=== PATIENT | female | born 1965 | race Caucasian/White ===

== ENCOUNTER 2024-03-21 16:37 | Inpatient (IN) | payer OTHER, SELFPAY ==
[2024-03-21 12:32] VITALS: BP 112/70
[2024-03-21 13:25] VITALS: BP 91/62
[2024-03-21 14:00] VITALS: BP 100/60
--- NOTE | 2024-03-21 15:15 | ED.GENMED ---
History of Present Illness
General
Chief Complaint: Musculo-Skeletal Complaint
Source: patient
Exam Limitations: dementia
Time Seen by Provider: 03/21/24 13:23
Nursing documentation reviewed up to this point in time: agreed with
Travel History
Have you had any contact with someone who has COVID-19?: No
Do you have any symptoms of coronavirus? Fever > 100 degrees, chills, cough, shortness of breath, sore throat, loss of taste or smell, muscle aches, or headache?: No
History of Present Illness
History of Present Illness:
58-year-old female past medical history of Alzheimer's presenting to the emergency department today with concerns of a ground-level fall in the shower with her ent surgeon the time who was able to protect her head she did not hit her head but did
twist her right hip and has not been able to weight-bear since. Mainly complaining of right-sided hip pain.
Past History
Past History
ED Past Medical History: Other (Early onset Alzheimer's)
ED Past Surgical History: None
Social History
Tobacco: Non-smoker
Alcohol: None
Drug: None
Personal:
Living: with family
Family History
Family History: Negative Diabetes, Hypertension, Early CAD, Asthma or Cancer
Review of Systems
Review of Systems
Allergies reviewed?: Yes
All Other Systems: ROS reviewed and negative except as documented in HPI and ROS
Phy Exam
Physical Exam
Physical Exam:
GENERAL: Alert , in no apparent distress
EYE: pupils equal and reactive
NECK: Supple, no significant adenopathy.
ENT: o/p clr, mmm.
CARDIAC: Regular rate and rhythm .
LUNGS: Clear breath sounds bilaterally, no acute respiratory distress, no wheezes/rales/rhonchi
ABDOMEN: Soft, without focal tenderness, no r/g, no cvat
NEUROLOGICAL: Alert and oriented, no focal neuro deficits
SKIN: Warm and dry, skin intact.
MUSCULOSKELETAL: Significant discomfort with any movement of the right hip tenderness palpation to the right hip no redness or warmth normal distal pulses, well perfused.
PSYCH: Normal and appropriate interaction.
Course
Orders/Labs/Results
Orders:
Orders
03/21/24 12:39
CR Hips GERRY w/wo Pel 3-4 Vw Urgent
Comment:
Reason For Exam: fall, pain
Include a pelvis x-ray?: Yes
CR Knee- Right 4 Or More View* Urgent
Comment:
Reason For Exam: fall, pain
03/21/24 14:57
CT Lower Ext W/o Iv Cont Rt Urgent
Comment:
Reason For Exam: eval of known hip fx
03/21/24 15:24
BMP [Basic Metabolic Panel] Urgent
CBC/With Diff [Complete Blood Count/With Diff] Urgent
03/21/24 15:32
Weight Bearing Status As Directed
Weight bearing to: Right lower extremity
Type: Non Wt. bearing
03/21/24 15:34
Type+Screen Routine
03/21/24 15:44
Consult Orthopedic [ORTHOPEDIC CONSULT] Urgent
Consulting Provider: Minesh Diaz
Was physician already notified: Yes
03/22/24 Breakfast
NPO
Allow oral meds: Yes
Allow clear liquids: No
03/22/24 07:00
Povidone Iodine 10% Solution [Povidone Iodine 10%] 114 ml 0.9% Sod Chloride 3000 ml Irr [Nss Irrigation Bag] 3,000 ml IRRIG OR
Tranexamic Acid 3,000 mg 0.9% Sodium Chloride 250 ml [Nss] 250 ml IRRIG OR
03/22/24 15:32
CeFAZolin 2 GRAM [Ancef] 2 grams in 10 ml IV PRE PROCEDURE
Vital Signs
Initial and Last Documented VS:
Initial Vital Signs
Temp Pulse Resp BP Pulse Ox
97.4 F 56 18 112/70 100
03/21/24 12:32 03/21/24 12:32 03/21/24 12:32 03/21/24 12:32 03/21/24 12:32
Last Documented Vital Signs
Temp Pulse Resp BP Pulse Ox
97.4 F 60 14 100/60 100
03/21/24 12:32 03/21/24 14:30 03/21/24 14:30 03/21/24 14:00 03/21/24 13:45
MDM/Problems Addressed
MDM/Problems Addressed:
58-year-old female presenting to the emergency department after ground-level fall hitting her right hip. X-ray showing hip fracture Case discussed with orthopedics that would like patient admitted CT scan ordered for further assessment will likely
take to the OR tomorrow. Stable throughout ER stay. No signs of additional injury otherwise.
*Critical Care Note
Total Time (30-74mins, 75-104mins- exclusive of procedures): Not Applicable
ED Attending Note
-
Portions of this chart may have been created with voice recognition software.� Occasional wrong word or��sound alike� substitutions may have occurred due to the inherent limitations of voice recognition software.
Discharge Plan
Departure
Patient Disposition: Admit
Date of Disposition: 03/21/24
Time of Disposition: 15:48
Admit to: Med/Surg
Admit to doctor: Mark
Presentation/result/management discussed w/ accepting MD/DO: Hospitalist
Patient with high blood pressure during this ER visit?: No
Condition: Good
Covid-19: Not Applicable
Discharge Problem:
Fracture of right hip
Prescriptions:
No Action
No Meds [No Current Medications]
0
famotidine 40 MG tablet
40 mg PO HS Qty: 14 0RF
Referrals:
Jason Mccullough MD [Family Provider] -
Interventions
Interventions:
*Risk Screen - Suicide Last Done: 03/21/24 12:32
*General Assessment Last Done: 03/21/24 12:32
*Neglect/Abuse Screening Last Done: 03/21/24 12:32
ED- Fall Risk Assessment Last Done: 03/21/24 12:32
*ED COVID-19 Vaccine History Last Done: 03/21/24 12:32
ED-Musculoskeletal Assessment Last Done: 03/21/24 12:32
Discharge Date and Time
Print Language: GERMAN
--- NOTE | 2024-03-21 15:53 | CON.ORTHO ---
Consultation
-
Date/Time Consultation Requested: 03/21/2024 @ 15:44
Date/Time Consultation Performed: 03/21/2024 @ 15:50
Requesting Provider: Tahco Asher PA-C
Performing Provider: Maurice Conde PA-C for Dr. Minesh Diaz
Reason for Consultation: Right Hip Fracture
Consultation - Orthopedics
History
HPI: The patient is a 58-year-old female with a past medical history significant for early onset Alzheimer's who presents to [facility] Emergency Department with right hip pain. Due to Alzheimer's, much of history was obtained through
patient's (Rod HAINES) and Marie (aviation maintenance technician). It is reported that patient sustained a mechanical fall in the shower earlier today. Denies any head trauma/LOC. Patient has not been able to weight-bear since. Patient's aviation maintenance technician called
EMS who brought her to the ER for evaluation. X-rays were obtained revealing interruption of the trabecular pattern of the right femoral neck, suggestive of a minimally displaced fracture. Currently, she is resting in bed. She has pain localized
to the right hip with any movement. She does not take any blood thinners. Denies any further injuries. Denies any prior cardiac history. At baseline, patient is fully ambulatory without assistance. She does require assistance with ADLs.
Orthopedic surgery was consulted regarding management of her right hip fracture.
PAST MEDICAL HISTORY: Early onset Alzheimer's.
PAST SURGICAL HISTORY: None.
SOCIAL HISTORY: Denies tobacco use, alcohol use, or illicit drug use. Patient lives in a two-story home. Prior to her fall, she was fully ambulatory without assistance. She does require assistance with ADLs due to Alzheimer's.
FAMILY HISTORY: Non-contributory.
REVIEW OF SYSTEMS: 12-point review of systems obtained and negative except those mentioned in the HPI.
Allergies / Home Medications
Allergy/AdvReac Type Severity Reaction Status Date / Time
No Known Allergies Allergy Verified 03/21/24 12:38
�Medication �Instructions �Recorded
No Meds [No Current Medications] 0 02/11/11
famotidine 40 mg tablet 40 mg PO HS #14 tabs 02/11/11
Vital Signs / Lab Results
Temp Pulse Resp BP Pulse Ox
97.4 F 60 14 100/60 100
03/21/24 12:32 03/21/24 14:30 03/21/24 14:30 03/21/24 14:00 03/21/24 13:45
RADIOGRAPHIC FINDINGS:
CR Hips GERRY w/wo Pel 3-4 Vw was obtained at [facility] on 03/21/2024 and was made available for my review. Findings and Impression: There is interruption of the trabecular pattern of the right femoral neck, suggestive of minimally displaced
fracture. No additional fractures are appreciated. Radiographs obtained reviewed in comparison to prior right hip radiographs from 11/12/2022.
CR Knee - Right 4 or More View was also obtained at [facility] on 03/21/2024 and was made available for my review. Findings: No displaced fracture or dislocation is appreciated. No significant suprapatellar joint effusion is appreciated.
There is significant osteophyte formation and joint space narrowing. No significant osteoblastic or osteolytic lesions are seen. No significant periosteal reaction. Impression: No acute osseous abnormality appreciated.
PHYSICAL EXAM:
General: Well-developed, well-nourished female no acute distress.
HEENT: NCAT, sclera anicteric, normal conversational hearing.
Heart: No JVD. No lower extremity edema.
Lungs: Normal work of breathing on room air.
MSK: Focused examination of the right lower extremity reveals leg slightly shortened/slightly externally rotated. (+) Log roll. (+) Tenderness to palpation of right hip. No reproducible tenderness to palpation about the right knee. Gentle range of
motion of the right knee with flexion and extension without pain. Range of motion of the right hip deferred secondary to fracture. Able to plantarflex and dorsiflex right ankle. Able to wiggle all toes. Calf is soft and nontender to palpation.
NVI distally.
Assessment / Plan
ASSESSMENT: 58-year-old female with a past medical history significant for early onset dementia with a right femoral neck fracture.
PLAN: Unfortunately, radiographs obtained today revealed findings consistent with a right femoral neck fracture. Treatment options were discussed with the patient's POA (Rod: [phone]) and aviation maintenance technician (Marie). After thorough discussion,
shared decision was to proceed with operative fixation with ORIF vs. Hemiarthroplasty. We will obtain CT scan prior for further evaluation. The risks, benefits, potential complications, and expected postoperative course were reviewed. Surgical and
blood consents were obtained. Consent was left with OR front desk host. We will plan for OR tomorrow, 03/22/2024, under the direction of Dr. Diaz. Patient to remain NPO pMN. She is to remain nonweightbearing to the right leg until postop.
Pre-operative Ancef, iodine irrigation, and TXA irrigation on-call to the OR. Continue with pain management as needed. All questions were answered. Orthopedic surgery will continue to follow along.
[2024-03-21 15:56] LABS: % Basophils 0.6 % (0-2); % Eosinophils 1.8 % (0-6); % Immature Granulocytes 0.5 % (0-0.5); % Lymphocytes 10.6 % (20.5-51.1); % Monocytes 4.9 % (1.7-9.3); % Neutrophils 81.6 % (42.2-75.2); Absolute Basophils 0.1 10^3/uL (0-0.2); Absolute Eosinophils 0.2 10^3/uL (0-0.7); Absolute Immature Granulocytes 0.1 10^3/uL (0-0.05); Absolute Lymphocytes 1.2 10^3/uL (1.2-3.4); Absolute Monocytes 0.5 10^3/uL (0.1-0.6); Absolute Neutrophils 8.9 10^3/uL (1.4-6.5); Hematocrit 37.5 % (37.0-47.0); Hemoglobin 13.1 g/dL (12.0-16.0); Mean Corp Hgb Conc. 34.9 g/dL (33.0-37.0); Mean Corpuscular Hgb 31.8 pg (27.0-31.0); Mean Platelet Volume 13.6 fL (7.4-10.4); Nucleated Red Blood Cells % 0 %; Platelet Count 221 10^3/uL (130-400); Red Blood Cell Count 4.12 10^6/uL (4.20-5.40); Red Cell Dist. Width 12.6 % (11.5-14.5); White Blood Cell Count 10.9 10^3/uL (4.8-10.8)
[2024-03-21 15:59] LABS: Blood Urea Nitrogen 15 mg/dl (7-17); Calcium 9.1 mg/dl (8.4-10.2); Carbon Dioxide 30 mmol/L (22-30); Chloride 105 mmol/L (98-107); Glucose 85 mg/dl (70-99); Potassium 4.6 mmol/L (3.5-5.1); Sodium 138 mmol/L (135-145); eGFR > 60.00
--- NOTE | 2024-03-21 16:27 | HPS.HSE ---
Family Physician
-
Family Physician: Jason Mccullough
Chief Complaint
-
fall
History of Present Illness
58-year-old female with history of early onset Alzheimer disease came to the hospital after a fall with right hip fracture. Patient is poor historian and majority of the history was taken from shift manager and at bedside. Patient had a
ground-level fall in the shower and twisted her right hip. Currently denies any pain. Seen by orthopedics in the ED and plan for or tomorrow.
Medical History
Past Medical History
Past Medical History: Reports Other (Early onset Alzheimer)
Past Surgical History: Reports None
Social History
Unable to obtain full social history at this time due to: Dementia
Alcohol: None
Drug: None
Family History
Family History: Not pertinent
Allergies / Home Medications
Allergies reflects when Allergies were last updated in [facility].
Home Medications with original date entered in [facility]
Allergy/Medication List:
Allergies
Allergy/AdvReac Type Severity Reaction Status Date / Time
No Known Allergies Allergy Verified 03/21/24 12:38
Home Medications
quetiapine 25 mg tablet 25 mg PO DAILY 03/21/24
Review of Systems
-
Unable to obtain full review of systems at this time due to: Dementia
Physical Exam
Vital Signs
Vital Signs
Temp Pulse Resp BP Pulse Ox
97.4 F 60 14 100/60 100
03/21/24 12:32 03/21/24 14:30 03/21/24 14:30 03/21/24 14:00 03/21/24 13:45
Physical Exam
General: Well Nourished and No Apparent Distress
HEENT: Anicteric and Moist mucous membranes
Respiratory: Clear; No Wheezes
Cardiac: S1/S2 and Regular Rhythm
Breast: Deferred by me
GI: Soft and Non Tender
Rectal: Deferred by Provider
Genito-urinary: No Ocasio
Musculoskeletal: No Edema
Neuro: Awake and Alert
Psych: Anxious and Apparent Dementia
Laboratory Results
-
03/21/24 15:24
03/21/24 15:24
Data Reviewed
-
Diagnostic Radiology: Report Reviewed by me and Discussed with Family
Lab Data: Labs Reviewed by me and Discussed with Family
Impression/Plan
-
Acute right hip fracture secondary to trauma
X-ray noted
CT scan pending
Orthopedics consulted, plan for or tomorrow
N.p.o. past midnight
Postop PT/OT; DVT prophylaxis per Ortho
pain control
Patient no EKG done on admission, EKG ordered. Risk stratify pending EKG. no hx of other cardiac problems per family so likely appropriate risk for this surgery
Hx of early onset Alzheimer dementia
cw seroquel
monitor for any behavioral changes; or shift manager will be staying with patient this hospitalization
History of nondisplaced nasal bone fracture
DVTppx
SCD's for now; Post OP per ortho
Full code
Discussed with shift manager, at bedside
--- NOTE | 2024-03-21 18:29 | PTCARENOTE ---
Patient received from ED in stretcher, pulled over to bed; Patient not oriented to self, place or time; Agitated, uncooperative; (Greg) at bedside; Patient does not respond when asked about pain; Bed alarm in place; Static air overlay in
place; Bruise on left buttock; Bed in lowest position, wheels locked; Call bennett within reach; Assessment ongoing
[2024-03-21 18:47] VITALS: BP 90/48
[2024-03-21] MEDS: MORPHINE SULFATE 1 MG IV (20:00)
[2024-03-21 23:15] VITALS: BP 114/61
[2024-03-22] VITALS (11 sets, daily range): BP systolic 102–142; BP diastolic 60–93
--- NOTE | 2024-03-22 01:21 | PTCARENOTE ---
58-year-old female with history of early onset Alzheimer disease (AOx0) arrived in ED after a fall with right hip fracture. Patient is a poor historian and majority of the admission was taken from daughter Ame & sister Joan with the help of
Greg via text to daughter. Patient had a ground-level fall in the shower and twisted her right hip. Pt scored 7 on CPOT screening, administered 1 mg IV morphine for pain score of 7 at 20:00. Family remains at beside. Bed alarm on, bed in low
position, call light in reach. Pain control, hygiene, pt safety and comfort plan for overnight. Pt to have a R Ba Hip with Dr. Edge tomorrow.
--- NOTE | 2024-03-22 07:21 | W.PN.UPDATE ---
Addendum entered and electronically signed by Tio Clements MD 03/22/24 16:46:
Patient seen and examined in the presence of her . Right hip hemiarthroplasty discussed. Risks, benefits, complications and postop expectations discussed. The procedure was discussed in detail. All questions were answered. Informed
consent obtained.
Original Note:
Update Note
Progress Note Update
Patient's at bedside this morning. She is going to require right hip hemiarthroplasty later today. She will remain n.p.o. Surgical/blood consents signed by . Surgical location marked. Ancef network control technician to to operating room.
Antibiotic irrigation/TXA to operating room as well.
[2024-03-22] MEDS: SEROQUEL 25 MG PO (08:20)
--- NOTE | 2024-03-22 08:22 | W.PN.HOSP.TC ---
Addendum entered and electronically signed by Master Yarbrough MD 03/22/24 15:09:
Cachexia
Original Note:
Today's Communication/Plan
-
Patient is considered low risk for scheduled hemiarthroplasty to right hip fracture
Spoke to at bedside
Resume Seroquel. For advanced Alzheimer's and behavioral changes
Monitor hemodynamics.
Assessment / Plan
Assessment / Plan
58-year-old female with history of early onset Alzheimer disease came to the hospital after a fall with right hip fracture. Patient is poor historian and majority of the history was taken from advanced analytics associate and at bedside. Patient had a
ground-level fall in the shower and twisted her right hip. Currently denies any pain. Seen by orthopedics in the ED and plan for or tomorrow.
Acute right hip fracture secondary to trauma
X-ray noted
CT scan pending
Orthopedics consulted, plan for or tomorrow
N.p.o. past midnight
Postop PT/OT; DVT prophylaxis per Ortho
pain control
EKG reviewed no acute ischemic or injury changes and stable sinus rhythm/ no hx of other cardiac problems per family so likely appropriate risk for this surgery
Hx of early onset Alzheimer dementia
cw seroquel
monitor for any behavioral changes; or advanced analytics associate will be staying with patient this hospitalization
History of nondisplaced nasal bone fracture
DVTppx
SCD's for now; Post OP per ortho
Full code
Discussed with advanced analytics associate, at bedside
Anticipated Discharge: Within 24 hours
Subjective/Interval History
-
Date of Service: March 22, 2024
Patient seen in presence of poor historian due to underlying cognitive dysfunction and advanced Alzheimer's in no acute distress
Objective Data
-
Labs:
Laboratory Results
03/22/24 03/22/24
07:51 07:52
WBC Pending
Hgb Pending
Hct Pending
Plt Count Pending
PT Pending
INR Pending
APTT Pending
Sodium Pending
Potassium Pending
Chloride Pending
Carbon Dioxide Pending
BUN Pending
Creatinine Pending
Glucose Pending
Calcium Pending
Total Bilirubin Pending
AST Pending
ALT Pending
Alkaline Phosphatase Pending
Vital Signs:
Vital Signs
Temp Pulse Resp BP Pulse Ox
97.6 F 80 18 102/85 94
03/22/24 07:25 03/22/24 07:25 03/22/24 07:25 03/22/24 07:25 03/22/24 07:25
Review of Systems
-
Unable to obtain full review of systems at this time due to: Dementia
History Source: Patient
Physical Exam
-
General: Well Nourished and No Apparent Distress
HEENT: Normocephalic
Respiratory: Clear to Auscultation
Cardiac: Regular Rhythm
GI: Soft
Musculoskeletal: No Clubbing and Edema, Left Lower Extrem (Shortened)
Skin: IV Access / Catheter Site
Data Reviewed
-
Total Time Spent with Patient (in minutes): 45
CT Scan: Report Reviewed by me (Exhibited subcapital fracture)
Labs: Labs Reviewed by me (Today's labs pending/baseline hemoglobin 13 yesterday)
[2024-03-22 08:33] LABS: INR 1.12; PT 14.2 Sec (11.4-14.6)
[2024-03-22 08:34] LABS: APTT 27.3 Sec (23.4-35.0)
[2024-03-22 08:35] LABS: % Basophils 0.6 % (0-2); % Immature Granulocytes 0.3 % (0-0.5); % Lymphocytes 9.5 % (20.5-51.1); % Monocytes 7.5 % (1.7-9.3); % Neutrophils 81.1 % (42.2-75.2); Absolute Basophils 0.1 10^3/uL (0-0.2); Absolute Eosinophils 0.1 10^3/uL (0-0.7); Absolute Lymphocytes 0.9 10^3/uL (1.2-3.4); Absolute Monocytes 0.7 10^3/uL (0.1-0.6); Absolute Neutrophils 7.9 10^3/uL (1.4-6.5); Hematocrit 38.7 % (37.0-47.0); Hemoglobin 13.1 g/dL (12.0-16.0); Mean Corp Hgb Conc. 33.9 g/dL (33.0-37.0); Mean Corpuscular Hgb 31.6 pg (27.0-31.0); Mean Corpuscular Volume 93.3 fL (81.0-99.0); Mean Platelet Volume 13.5 fL (7.4-10.4); Nucleated Red Blood Cells % 0 %; Platelet Count 217 10^3/uL (130-400); Red Blood Cell Count 4.15 10^6/uL (4.20-5.40); Red Cell Dist. Width 12.5 % (11.5-14.5); White Blood Cell Count 9.8 10^3/uL (4.8-10.8)
[2024-03-22 08:53] LABS: ALT (SGPT) 21 U/L (0-35); AST (SGOT) 23 U/L (14-36); Albumin 3.6 g/dl (3.5-5.0); Alkaline Phosphatase 83 U/L (38-126); Blood Urea Nitrogen 11 mg/dl (7-17); Calcium 8.8 mg/dl (8.4-10.2); Carbon Dioxide 29 mmol/L (22-30); Chloride 105 mmol/L (98-107); Glucose 91 mg/dl (70-99); Potassium 3.8 mmol/L (3.5-5.1); Sodium 139 mmol/L (135-145); Total Protein 6.2 g/dl (6.3-8.2); eGFR > 60.00
[2024-03-22] MEDS: MORPHINE SULFATE 1 MG IV (11:19)
--- NOTE | 2024-03-22 12:08 | PTCARENOTE ---
Pt noted with bruising to inner thighs and labial area extending posteriorly to buttocks discussed with Dr Diaz felt to most likely be related to the fracture. Care remains ongoing.
--- NOTE | 2024-03-22 13:57 | PN.CDI ---
CDI
- -
CDI:
Physician Documentation Request
Admit Date: 03/21/24 16:37
Dear Doctor Linnea,
Patient admitted with right hip fracture.
Please review the following and provide your response in the progress notes.
Clinical Indicators:
Height: 5' 4'
Weight: 87 lb 11 oz
BMI: 15.1
Please provide an associated diagnosis related to the abnormal BMI, such as:
Underweight
Cachectic
Anorexia
BMI is not significant
Other
BMI < or = to 19
Underweight
Weight Loss
Cachectic
Anorexia
Use of terms such as suspected, likely, concern for, or probable (associated with a specific diagnosis that is being evaluated, monitored, or treated as if it exists) are acceptable and can be coded in the inpatient setting, when documented at the
time of discharge.
Thank you,
Leonela BELLA,RN,CCDS
CDI Specialist
Available via tiger text
Please use your independent medical judgment in providing your response.
[2024-03-22] MEDS: DILAUDID 0.25 MG IV (16:46)
[2024-03-22] MEDS: ASPIRIN 325 MG PO (17:53)
--- NOTE | 2024-03-22 18:00 | PTCARENOTE ---
Pt returned from PACU in bed. R hip aquacel with scant pinpoint drainage. Pt confused, unable to follow commands. + DP b/l. Bed locked and in the lowest position, safety maintained. Call bennett in reach, family at bedside.
[2024-03-22] MEDS: DILAUDID 0.5 MG IV (19:33)
[2024-03-22] MEDS: COLACE PO (21:19)
[2024-03-22] MEDS: SENOKOT PO (21:19)
[2024-03-22] MEDS: ANCEF 5 IV (21:28)
[2024-03-22] MEDS: BACTROBAN 2% OINTMENT 1 APPLIC NASAL (21:29)
[2024-03-23] VITALS (7 sets, daily range): BP systolic 99–123; BP diastolic 55–69; PULSE 69; O2SAT 98; BMI 15.1
[2024-03-23] MEDS: ANCEF 5 IV (04:08)
[2024-03-23 05:34] LABS: Hematocrit 33.5 % (37.0-47.0); Hemoglobin 11.6 g/dL (12.0-16.0); Mean Corp Hgb Conc. 34.6 g/dL (33.0-37.0); Mean Corpuscular Hgb 31.5 pg (27.0-31.0); Mean Platelet Volume 13.4 fL (7.4-10.4); Platelet Count 217 10^3/uL (130-400); Red Blood Cell Count 3.68 10^6/uL (4.20-5.40); Red Cell Dist. Width 12.7 % (11.5-14.5); White Blood Cell Count 11.4 10^3/uL (4.8-10.8)
[2024-03-23 05:58] LABS: Blood Urea Nitrogen 12 mg/dl (7-17); Calcium 8.8 mg/dl (8.4-10.2); Carbon Dioxide 24 mmol/L (22-30); Chloride 104 mmol/L (98-107); Estimated Creatinine Clearance 65 ml/min; Glucose 101 mg/dl (70-99); Potassium 4.7 mmol/L (3.5-5.1); Sodium 136 mmol/L (135-145); eGFR > 60.00
--- NOTE | 2024-03-23 07:30 | W.PN.HOSP.TC ---
Today's Communication/Plan
-
Will await rehab assessment by PT/OT today
Continue to monitor CBC and chemistries
Hemodynamically stable
Should be okay for discharge to a rehab facility once disposition outlined
Assessment / Plan
Assessment / Plan
58-year-old female with history of early onset Alzheimer disease came to the hospital after a fall with right hip fracture. Patient is poor historian and majority of the history was taken from ski lift attendant and at bedside. Patient had a
ground-level fall in the shower and twisted her right hip. Currently denies any pain. Seen by orthopedics in the ED and plan for or tomorrow.
Acute right hip fracture secondary to trauma
X-ray noted
CT scan pending
Orthopedics consulted, plan for or tomorrow
N.p.o. past midnight
Postop PT/OT; DVT prophylaxis per Ortho
pain control
EKG reviewed no acute ischemic or injury changes and stable sinus rhythm/ no hx of other cardiac problems per family so likely appropriate risk for this surgery
Hx of early onset Alzheimer dementia
cw seroquel
monitor for any behavioral changes; or ski lift attendant will be staying with patient this hospitalization
Recent weight loss
- has very good appetite
-May need to assess with outpatient workup unclear what colonoscopy status and prior history is
History of nondisplaced nasal bone fracture
DVTppx with full dose aspirin as per orthopedic
SCD's for now; Post OP per ortho
Full code
Discussed with ski lift attendant, at bedside/son at bedside today
Anticipated Discharge: 24 - 48 hours
Subjective/Interval History
-
Date of Service: March 23, 2024
For poor historian due to cognitive issues and underlying dementia family at bedside
Objective Data
-
Labs:
Laboratory Results
03/23/24
04:57
WBC 11.4 H
Hgb 11.6 L
Hct 33.5 L
Plt Count 217
Sodium 136
Potassium 4.7
Chloride 104
Carbon Dioxide 24
BUN 12
Creatinine 0.5 L
Glucose 101 H
Calcium 8.8
Vital Signs:
Vital Signs
Temp Pulse Resp BP Pulse Ox
97.7 F 77 16 99/69 95
03/23/24 03:32 03/23/24 07:20 03/23/24 07:20 03/23/24 07:20 03/23/24 07:20
I&O
03/22/24 03/23/24 03/24/24
06:59 06:59 06:59
Intake Total 400 / 400
Balance 400 / 400
Review of Systems
-
Unable to obtain full review of systems at this time due to: Dementia
History Source: Patient and Family
Constitutional: Denies Fever
Respiratory: Reports No Symptoms
Cardiac: Reports No Symptoms
Abdomen/GI: Reports No Symptoms
Psych: Reports Sad
Physical Exam
-
General: Appears Chronically Ill and Cachectic
HEENT: Normocephalic
Respiratory: Clear to Auscultation
Cardiac: Regular Rhythm
GI: Soft
Musculoskeletal: Edema, Right Lower Extrem (Some swelling and edema around surgical site with Aquacel with minimal if any strikethrough)
Neuro: Awake
Data Reviewed
-
Total Time Spent with Patient (in minutes): 45
Labs: Labs Reviewed by me (Hemoglobin stable at 11.6/white count 11.4/)
--- NOTE | 2024-03-23 07:54 | W.PN.ORTHO ---
Today's Communication / Plan
-
58F POD1 R hip hemiarthoplasty with Dr. Clements
-anterior hip precautions 6 weeks as best applicable
-DVT ppx of ASA 325mg daily for 4 weeks unless recommended otherwise per primary
-WBAT to RLE
-postop abx as ordered
-PT/OT/DC planning
-outpatient f/u 2 weeks for wound check/suture/staple removal
Assessment
.
Distal Motor Intact: Yes
Dressing:
Clean, dry and intact.
Plan
.
Surgery / Date: 22 Mar 2024 R hip hemiarthoplasty w/ Dr. Clements
DVT Prophylaxis: Aspirin
Activity:
Out of bed.
PT/OT
Subjective
.
.:
Patient resting comfortably. Her son is in the room
Vital Signs and Labs
.
Vital Signs and Labs:
Lab Results
03/23/24 04:57
03/23/24 04:57
Temp Pulse Resp BP Pulse Ox
97.7 F 77 16 99/69 95
03/23/24 03:32 03/23/24 07:20 03/23/24 07:20 03/23/24 07:20 03/23/24 07:20
PT 14.2 Sec (11.4-14.6) 03/22/24 07:51
INR 1.12 03/22/24 07:51
Non-invasive Hgb result: 10.6
--- NOTE | 2024-03-23 07:55 | CM ---
Addendum entered by Sobeida Scott 03/23/24 18:26:
spoke with patient's is is still not sure if he wants to take patient home with additional aides or snf rehab. no referrla sent.
Original Note:
met with patient and daughter at bedside. patient with early onset alzheimers and not able to answer any of my questions.patient lives with her in house with 2 steps to enter,her bed and bath is on second level.she ambulates I and needs A
with bathing/grooming.patient has a walk in shower.her pcp is dr grossman and she uses [facility] in [place].patient has used [facility] in the past,family has hired a friend to assist patient from 8am until 6pm 5 days per week.
cares for patient on the weekend.
patient with early onset alzheimers disease is adm after a fall in the shower resulting with a fx right hip.she is for or for a hemiarthroplasty.await pt/ot evals.daughter mentions she and her father have been thinking about home vs short term
rehab.plan home with caretakers vs short term rehab.
[2024-03-23] MEDS: BACTROBAN 2% OINTMENT 1 APPLIC NASAL ×2 (09:52→22:00)
[2024-03-23] MEDS: ASPIRIN 325 MG PO (09:53)
[2024-03-23] MEDS: SENOKOT 17.1999999999999993 MG PO ×2 (09:53→21:00)
[2024-03-23] MEDS: SEROQUEL 25 MG PO (09:53)
[2024-03-23] MEDS: COLACE 100 MG PO (09:53)
[2024-03-23] MEDS: ROXICODONE 5 MG PO ×2 (09:58→16:05)
[2024-03-23] MEDS: MORPHINE SULFATE 1 MG IV (18:50)
--- NOTE | 2024-03-23 19:08 | PTCARENOTE ---
pt given prn morphine for severe pain. pt was oob to the chair and with assistance pt was put back into bed. pt tearful and crying out in pain after transfer. daughter at bedside for medication administration. pt given medication through R wrist.
see MAR for proper documentation.
[2024-03-23] MEDS: COLACE PO (21:00)
[2024-03-23] MEDS: TYLENOL 650 MG PO (23:42)
--- NOTE | 2024-03-24 06:41 | PTCARENOTE ---
Unable to obtain non invasive this AM, machine read low perfusion. Switched multiple fingers, none reading. Phlebotomy will be up later this AM to draw labs.
[2024-03-24 07:19] VITALS: BP 105/64
[2024-03-24] MEDS: TYLENOL 650 MG PO (08:15)
[2024-03-24] MEDS: ASPIRIN 325 MG PO (08:16)
[2024-03-24] MEDS: SENOKOT 17.1999999999999993 MG PO ×2 (08:16→20:18)
[2024-03-24] MEDS: SEROQUEL 25 MG PO (08:16)
[2024-03-24] MEDS: COLACE 100 MG PO ×2 (08:16→20:18)
[2024-03-24 09:03] LABS: Hematocrit 32.2 % (37.0-47.0); Hemoglobin 11.1 g/dL (12.0-16.0); Mean Corp Hgb Conc. 34.5 g/dL (33.0-37.0); Mean Corpuscular Hgb 31.8 pg (27.0-31.0); Mean Corpuscular Volume 92.3 fL (81.0-99.0); Mean Platelet Volume 12.7 fL (7.4-10.4); Platelet Count 193 10^3/uL (130-400); Red Blood Cell Count 3.49 10^6/uL (4.20-5.40); White Blood Cell Count 11.8 10^3/uL (4.8-10.8)
[2024-03-24] MEDS: ROXICODONE 5 MG PO (09:03)
--- NOTE | 2024-03-24 09:08 | W.PN.ORTHO ---
Today's Communication / Plan
-
58F POD2 R hip hemiarthoplasty with Dr. Clements
-anterior hip precautions 6 weeks as best applicable
-DVT ppx of ASA 325mg daily for 4 weeks unless recommended otherwise per primary
-WBAT to RLE
-Continue with pain management as needed
-PT/OT/DC planning
-Maintain Aquacel dressing for 7-10 days
-outpatient f/u 2 weeks for wound check/suture/staple removal
-Patient is orthopedically stable postop. Will sign off. Please reach out with any questions or concerns.
Assessment
.
Distal Motor Intact: Yes
Dressing:
Clean, dry and intact.
Plan
.
Surgery / Date: 22 Mar 2024 R hip hemiarthoplasty w/ Dr. Clements
DVT Prophylaxis: Aspirin
Activity:
Out of bed.
PT/OT
Subjective
.
.:
Patient resting comfortably in bed. Family at bedside
Vital Signs and Labs
.
Vital Signs and Labs:
Temp Pulse Resp BP Pulse Ox
98.0 F 86 16 105/64 100
03/24/24 07:19 03/24/24 07:19 03/24/24 07:19 03/24/24 07:19 03/23/24 23:40
PT 14.2 Sec (11.4-14.6) 03/22/24 07:51
INR 1.12 03/22/24 07:51
Non-invasive Hgb result: 10.6
Physical Exam
-
RLE: Aquacel dressing clean, dry, and intact. Thigh soft and compressible. Mild tenderness with palpation of lateral hip. Able to plantarflex/dorsiflex the ankle. Calf soft and nontender. NVI distally
[2024-03-24 09:17] LABS: Blood Urea Nitrogen 15 mg/dl (7-17); Calcium 8.8 mg/dl (8.4-10.2); Carbon Dioxide 29 mmol/L (22-30); Chloride 103 mmol/L (98-107); Estimated Creatinine Clearance 65 ml/min; Glucose 114 mg/dl (70-99); Potassium 4.2 mmol/L (3.5-5.1); Sodium 137 mmol/L (135-145); eGFR > 60.00
--- NOTE | 2024-03-24 11:29 | CM ---
Addendum entered by ANDREA Plata 03/24/24 17:31:
Patient dgtr in room. Updated her cannot use [facility] as patient has [employer] and they do not accept. CM to make referrals to Ruth at [facility] acute rehab since patient has need for therapy to help her learn habits and movements to maintain hip
precautions. She was physically able to walk at home but needed guarding due to what called her 'convulsions'.
Original Note:
Met with patient's spouse and sister in room. Patient was sleeping. Discussed next level of care. Referrals to be made to [facility] and [facility] per . After short term rehab plan to have patient go home with curb setter helper and family support.
Spoke to PT after today's session. Patient did better.
Referrals sent in care port to SNF with [facility] attached.
Also gave spouse list of elder care attorneys.
--- NOTE | 2024-03-24 11:56 | W.PN.HOSP.TC ---
Today's Communication/Plan
-
Discussed with Rufina Bruce CM regarding dispo plans
Assessment / Plan
Assessment / Plan
58-year-old female with history of early onset Alzheimer disease came to the hospital after a fall with right hip fracture. Patient is poor historian and history was taken from at bedside. Patient had a ground-level fall in the shower
and twisted her right hip. Currently denies any pain. Seen by orthopedics and underwent rt hip hemiarthroplasty on 03/22
Acute right hip fracture secondary to trauma
X-ray noted
CT scan: There is a subcapital fracture of the neck of the proximal right femur, minimally rotated and possibly impacted. There is no accompanying dislocation identified. No additional recent cortical fracture is seen.
diet resumed
Postop PT/OT; DVT prophylaxis per Ortho
pain control
EKG reviewed no acute ischemic or injury changes and stable sinus rhythm/ no hx of other cardiac problems per family
Hx of early onset Alzheimer dementia
cw seroquel
monitor for any behavioral changes; or traffic court magistrate will be staying with patient this hospitalization
Recent weight loss
- has very good appetite
-May need to assess with outpatient workup unclear what colonoscopy status and prior history is
History of nondisplaced nasal bone fracture
DVTppx with full dose aspirin as per orthopedic
Full code
Discussed with at bedside. Discussed need for post hospital SNF care. He had many questions about this. Also discussed code status, for now she remains a full code
Anticipated Discharge: 24 - 48 hours
Subjective/Interval History
-
Date of Service: March 24, 2024
Does not appear to be in distress
Objective Data
-
Labs:
Laboratory Results
03/24/24
08:52
WBC 11.8 H
Hgb 11.1 L
Hct 32.2 L
Plt Count 193
Sodium 137
Potassium 4.2
Chloride 103
Carbon Dioxide 29
BUN 15
Creatinine 0.5 L
Glucose 114 H
Calcium 8.8
Vital Signs:
Vital Signs
Temp Pulse Resp BP Pulse Ox
98.0 F 86 16 105/64 100
03/24/24 07:19 03/24/24 07:19 03/24/24 07:19 03/24/24 07:19 03/23/24 23:40
I&O
03/23/24 03/24/24 03/25/24
06:59 06:59 06:59
Intake Total 400 / 400 780 / 780
Balance 400 / 400 780 / 780
Review of Systems
-
Unable to obtain full review of systems at this time due to: Dementia
History Source: Family (reviewed with in room)
Constitutional: Denies Fever
Respiratory: Reports No Symptoms
Cardiac: Reports No Symptoms
Abdomen/GI: Reports No Symptoms
Psych: Reports Sad
Physical Exam
-
General: Appears Chronically Ill and Cachectic
HEENT: Normocephalic
Respiratory: Clear to Auscultation
Cardiac: Regular Rhythm
GI: Soft
Musculoskeletal: No Clubbing, No Cyanosis, No Edema and Edema, Right Lower Extrem (Some swelling and edema around surgical site with Aquacel with minimal if any strikethrough)
Neuro: Awake; Negative Oriented
[2024-03-24 15:45] VITALS: BP 138/89
[2024-03-24 23:40] VITALS: BP 130/74
[2024-03-25] MEDS: DULCOLAX 10 MG RECTAL (05:42)
[2024-03-25] MEDS: DILAUDID 0.5 MG IV (05:46)
[2024-03-25 07:45] VITALS: BP 115/67
[2024-03-25] MEDS: SEROQUEL 25 MG PO (09:19)
[2024-03-25] MEDS: SENOKOT 17.1999999999999993 MG PO (09:19)
[2024-03-25] MEDS: COLACE 100 MG PO (09:19)
[2024-03-25] MEDS: ASPIRIN 325 MG PO (09:19)
[2024-03-25] MEDS: ROXICODONE 5 MG PO (09:23)
[2024-03-25 11:30] VITALS: BP 128/69; BP 135/104; PULSE 96
--- NOTE | 2024-03-25 13:43 | W.PN.HOSP.TC ---
Today's Communication/Plan
-
discharge to SNF in near future
Assessment / Plan
Assessment / Plan
58-year-old female with history of early onset Alzheimer disease came to the hospital after a fall with right hip fracture. Patient is poor historian and history was taken from at bedside. Patient had a ground-level fall in the shower
and twisted her right hip. Currently denies any pain. Seen by orthopedics and underwent rt hip hemiarthroplasty on 03/22
Acute right hip fracture secondary to trauma
X-ray noted
CT scan: There is a subcapital fracture of the neck of the proximal right femur, minimally rotated and possibly impacted. There is no accompanying dislocation identified. No additional recent cortical fracture is seen.
diet resumed
Postop PT/OT; DVT prophylaxis per Ortho
pain control
EKG reviewed no acute ischemic or injury changes and stable sinus rhythm/ no hx of other cardiac problems per family
Hx of early onset Alzheimer dementia
cw seroquel
monitor for any behavioral changes; or cooking appliance repair technician will be staying with patient this hospitalization
Recent weight loss
- has very good appetite
-May need to assess with outpatient workup unclear what colonoscopy status and prior history is
History of nondisplaced nasal bone fracture
DVTppx with full dose aspirin as per orthopedic
Full code
Discussed with at bedside again today. Discussed need for post hospital SNF care, he is now agreeable. He had many questions about this. Also discussed code status, for now she remains a full code. Await dispo plans
Anticipated Discharge: 24 - 48 hours
Subjective/Interval History
-
Date of Service: March 25, 2024
appears comfortable
Objective Data
-
Vital Signs:
Vital Signs
Temp Pulse Resp BP Pulse Ox
98.7 F 85 14 115/67 100
03/25/24 07:45 03/25/24 07:45 03/25/24 07:45 03/25/24 07:45 03/25/24 07:45
I&O
03/24/24 03/25/24 03/26/24
06:59 06:59 06:59
Intake Total 780 / 780 680 / 680
Balance 780 / 780 680 / 680
Review of Systems
-
Unable to obtain full review of systems at this time due to: Dementia
History Source: Family (reviewed with in room)
Constitutional: Denies Fever
Respiratory: Reports No Symptoms
Cardiac: Reports No Symptoms
Abdomen/GI: Reports No Symptoms
Psych: Reports Sad
Physical Exam
-
General: Appears Chronically Ill and Cachectic
HEENT: Normocephalic
Respiratory: Clear to Auscultation
Cardiac: Regular Rhythm
GI: Soft
Musculoskeletal: No Clubbing, No Cyanosis, No Edema and Edema, Right Lower Extrem (Some swelling and edema around surgical site with Aquacel with minimal if any strikethrough)
Neuro: Awake; Negative Oriented
[2024-03-25 17:40] VITALS: BP 107/72
[2024-03-25] MEDS: ROXICODONE 10 MG PO (17:59)
[2024-03-25] MEDS: SENOKOT PO (22:41)
[2024-03-25] MEDS: COLACE PO (22:41)
[2024-03-25 23:30] VITALS: BP 92/73
[2024-03-26 07:40] VITALS: BP 122/74
[2024-03-26] MEDS: COLACE 100 MG PO (09:39)
[2024-03-26] MEDS: ASPIRIN 325 MG PO (09:39)
[2024-03-26] MEDS: SEROQUEL 25 MG PO (09:39)
[2024-03-26] MEDS: SENOKOT 17.1999999999999993 MG PO ×2 (09:39→21:21)
[2024-03-26] MEDS: ROXICODONE 10 MG PO (09:45)
[2024-03-26 10:35] LABS: Hematocrit 29.2 % (37.0-47.0)
[2024-03-26 11:55] VITALS: BP 106/68; BP 84/53; BP 89/53; PULSE 70; PULSE 74; PULSE 86; O2SAT 94; O2SAT 96
--- NOTE | 2024-03-26 12:11 | W.PN.HOSP.TC ---
Today's Communication/Plan
-
Monitor vital signs
See plan
Pain control
Discharge planning
Aspirin for DVT ppx
Assessment / Plan
Assessment / Plan
58-year-old female with history of early onset Alzheimer disease came to the hospital after a fall with right hip fracture. Patient is poor historian and history was taken from at bedside. Patient had a ground-level fall in the shower
and twisted her right hip. Currently denies any pain. Seen by orthopedics and underwent rt hip hemiarthroplasty on 03/22
Acute right hip fracture secondary to trauma
X-ray noted
CT scan: There is a subcapital fracture of the neck of the proximal right femur, minimally rotated and possibly impacted. There is no accompanying dislocation identified. No additional recent cortical fracture is seen.
diet resumed
ASA for DVT ppx
pain control
EKG reviewed no acute ischemic or injury changes and stable sinus rhythm/ no hx of other cardiac problems per family
-anterior hip precautions 6 weeks as best applicable
-DVT ppx of ASA 325mg daily for 4 weeks unless recommended otherwise per primary
-WBAT to RLE
-Continue with pain management as needed
-PT/OT/DC planning
-Maintain Aquacel dressing for 7-10 days
-outpatient f/u 2 weeks for wound check/suture/staple removal with orthopedics
Hx of early onset Alzheimer dementia
cw seroquel
monitor for any behavioral changes; or occupational health specialist will be staying with patient this hospitalization
Anemia likely acute blood loss from surgery
monitor
Recent weight loss
- has very good appetite
-May need to assess with outpatient workup unclear what colonoscopy status and prior history is
History of nondisplaced nasal bone fracture
DVTppx with full dose aspirin as per orthopedic
Full code
Discussed with and occupational health specialist at bedside again today. Discussed need for post hospital SNF care. awaiting SNF placement
General: Appears Chronically Ill and Cachectic
HEENT: Normocephalic
Respiratory: Clear to Auscultation
Cardiac: Regular Rhythm
GI: Soft
Musculoskeletal: Edema, Right Lower Extrem (Some swelling and edema around surgical site with Aquacel with minimal if any strikethrough)
Neuro: Awake; Negative Oriented
Anticipated Discharge: Within 24 hours
Subjective/Interval History
-
Date of Service: March 26, 2024
has some pain at times
Objective Data
-
Labs:
Laboratory Results
03/26/24
10:00
Hgb 10.0 L
Hct 29.2 L
Vital Signs:
Vital Signs
Temp Pulse Resp BP Pulse Ox
97.6 F 90 17 122/74 97
03/26/24 07:40 03/26/24 07:40 03/26/24 07:40 03/26/24 07:40 03/26/24 07:40
I&O
03/25/24 03/26/24 03/27/24
06:59 06:59 06:59
Intake Total 680 / 680 480 / 480
Balance 680 / 680 480 / 480
[2024-03-26 15:45] VITALS: BP 106/66
--- NOTE | 2024-03-26 15:57 | CM ---
CM reviewed pt with Dr Meredith- ready for dc
Bedside meeting with pt, spouse and private duty caregiver
Pt did not participate in meeting
SNF vs acute rehab discussed in length along with role of PMR and [employer] in auth process
Spouse does not interested in acute, requesting SNF to be arranged
Additional SNF referrals sent, [facility] first choice
[facility]- not in network, $2000 deductible, 60% daily coverage after deductible is met
Denied at [facility], [facility], ,
Accepted at [place], [facility], [facility]- pending
Per spouse, [facility] and then [facility]
Not interested in associated costs with [facility]
Update to [facility]/mandy Leiva [phone]
She will provide outcome of insurance review tomorrow
Pt will require [employer] auth
PMR cancelled and update to Dr Meredith and Sue Diaz/Faraz
Discharge Disposition- SNF pending auth
[2024-03-26] MEDS: COLACE PO (21:22)
[2024-03-26] MEDS: DILAUDID 0.5 MG IV (22:58)
[2024-03-26 23:15] VITALS: BP 125/73
[2024-03-27 06:37] LABS: Hematocrit 27.8 % (37.0-47.0); Hemoglobin 9.6 g/dL (12.0-16.0)
[2024-03-27 07:00] VITALS: BP 101/56
[2024-03-27] MEDS: ASPIRIN 325 MG PO (09:05)
[2024-03-27] MEDS: SENOKOT 17.1999999999999993 MG PO ×2 (09:05→21:05)
[2024-03-27] MEDS: SEROQUEL 25 MG PO (09:05)
[2024-03-27] MEDS: COLACE PO ×3 (09:05→21:10)
--- NOTE | 2024-03-27 10:49 | W.PN.HOSP.TC ---
Today's Communication/Plan
-
Monitor vital signs and see plan
Pain control
Discharge when has placement and auth
ASA for DVT ppx
Assessment / Plan
Assessment / Plan
58-year-old female with history of early onset Alzheimer disease came to the hospital after a fall with right hip fracture. Patient is poor historian and history was taken from at bedside. Patient had a ground-level fall in the shower
and twisted her right hip. Currently denies any pain. Seen by orthopedics and underwent rt hip hemiarthroplasty on 03/22
Acute right hip fracture secondary to trauma
X-ray noted
CT scan: There is a subcapital fracture of the neck of the proximal right femur, minimally rotated and possibly impacted. There is no accompanying dislocation identified. No additional recent cortical fracture is seen.
diet resumed
ASA for DVT ppx
pain control
EKG reviewed no acute ischemic or injury changes and stable sinus rhythm/ no hx of other cardiac problems per family
-anterior hip precautions 6 weeks as best applicable
-DVT ppx of ASA 325mg daily for 4 weeks unless recommended otherwise per primary
-WBAT to RLE
-Continue with pain management as needed
-PT/OT/DC planning
-Maintain Aquacel dressing for 7-10 days
-outpatient f/u 2 weeks for wound check/suture/staple removal with orthopedics
Hx of early onset Alzheimer dementia
cw seroquel
monitor for any behavioral changes; or sheet metal roofer will be staying with patient this hospitalization
Anemia likely acute blood loss from surgery
monitor
Recent weight loss
- has very good appetite
-May need to assess with outpatient workup unclear what colonoscopy status and prior history is
History of nondisplaced nasal bone fracture
DVTppx with full dose aspirin as per orthopedic
Full code
Discussed with and sheet metal roofer at bedside again today. Discussed need for post hospital SNF care. awaiting SNF placement and auth
General: Appears Chronically Ill and Cachectic
HEENT: Normocephalic
Respiratory: Clear to Auscultation
Cardiac: Regular Rhythm
GI: Soft
Musculoskeletal: Edema, Right Lower Extrem (Some swelling and edema around surgical site with Aquacel with minimal if any strikethrough)
Neuro: Awake; Negative Oriented
Anticipated Discharge: Today
Subjective/Interval History
-
Date of Service: March 27, 2024
denies pain
Objective Data
-
Labs:
Laboratory Results
03/27/24
05:40
Hgb 9.6 L
Hct 27.8 L
Vital Signs:
Vital Signs
Temp Pulse Resp BP Pulse Ox
98.2 F 88 16 101/56 100
03/27/24 07:00 03/27/24 07:00 03/27/24 07:00 03/27/24 07:00 03/27/24 08:00
I&O
03/26/24 03/27/24 03/28/24
06:59 06:59 06:59
Intake Total 480 / 480 120 / 120
Balance 480 / 480 120 / 120
--- NOTE | 2024-03-27 10:55 | CM ---
CM reviewed pt with Dr Meredith- pt ready for dc
Patient offered bed at [facility]
Call with spouse who is in agreement with plan
Annamarie sanches initiated on [employer] and clinicals faxed
Pending Ref# [id number]
Will awaiting auth determination
Discharge Disposition- [facility] pending [employer] auth
--- NOTE | 2024-03-27 12:25 | PN.CDI ---
CDI
- -
CDI:
Physician Documentation Request
Admit Date: 03/21/24 16:37
Dear Doctor Masoud,
Patient admitted with right hip fracture.
03/26 Nutrition note, ' Per current clinical data pt with 2-13 lb. wt loss. thinks pt lost 10lbs over the last year. This reflects a 10% wt. loss.
Pt meets criteria for ASPEN/AND moderate malnutrition of chronic disease.'
Based on the above information and your assessment, which of the following most accurately represents the patient's nutritional status:
Moderate protein calorie malnutrition
Mild protein calorie malnutrition
Other
Prescott Criteria ([facility] Hospitalist 2017)
2 or more criteria must be present for either
non severe or severe malnutrition
Note that the criteria differs related to the
presence of an acute or chronic illness
Chronic Illness
Energy Intake Non Severe: <75% for >1 month
Severe: <75% for >1 month
Weight Loss Non Severe: 5% over 1 month
7.5% over 3 months
10% over 6 months
20% over 1 year
Severe: >5% over 1 month
>7.5% over 3 months
>10% over 6 months
>20% over 1 year
Body Fat Non Severe: Mild Loss
Severe: Severe Loss
Muscle Mass Non Severe: Mild Loss
Severe: Severe Loss
Fluid Accumulation Non Severe: Mild Accumulation
Severe: Moderate to severe
accumulation
Reduced Fire Control Technician B Strength Non Severe: N/A
Severe: Measurably reduced
Use of terms such as suspected, likely, concern for, or probable (associated with a specific diagnosis that is being evaluated, monitored, or treated as if it exists) are acceptable and can be coded in the inpatient setting, when documented at the
time of discharge.
Thank you,
Leonela BELLA,RN,CCDS
CDI Specialist
Available via tiger text
Please use your independent medical judgment in providing your response.
[2024-03-27 15:22] VITALS: BP 117/62; PULSE 92
[2024-03-27 15:37] VITALS: BP 117/62
[2024-03-27] MEDS: ROXICODONE 10 MG PO (18:32)
[2024-03-27 23:00] VITALS: BP 92/60
[2024-03-28] MEDS: ROXICODONE 10 MG PO (01:22)
[2024-03-28 06:38] LABS: Hematocrit 25.9 % (37.0-47.0); Hemoglobin 9.2 g/dL (12.0-16.0)
[2024-03-28 07:25] VITALS: BP 111/60
[2024-03-28] MEDS: COLACE PO (08:54)
[2024-03-28] MEDS: SENOKOT 17.1999999999999993 MG PO ×2 (08:54→20:14)
[2024-03-28] MEDS: SEROQUEL 25 MG PO (08:54)
[2024-03-28] MEDS: ASPIRIN 325 MG PO (08:54)
--- NOTE | 2024-03-28 10:46 | W.PN.HOSP.TC ---
Today's Communication/Plan
-
Monitor vital sign closely plan
Awaiting insurance authorization, vocational case manager aware
Pain control
Monitor hgb
Assessment / Plan
Assessment / Plan
58-year-old female with history of early onset Alzheimer disease came to the hospital after a fall with right hip fracture. Patient is poor historian and history was taken from at bedside. Patient had a ground-level fall in the shower
and twisted her right hip. Currently denies any pain. Seen by orthopedics and underwent rt hip hemiarthroplasty on 03/22
Acute right hip fracture secondary to trauma
X-ray noted
CT scan: There is a subcapital fracture of the neck of the proximal right femur, minimally rotated and possibly impacted. There is no accompanying dislocation identified. No additional recent cortical fracture is seen.
diet resumed
ASA for DVT ppx
pain control
EKG reviewed no acute ischemic or injury changes and stable sinus rhythm/ no hx of other cardiac problems per family
-anterior hip precautions 6 weeks as best applicable
-DVT ppx of ASA 325mg daily for 4 weeks unless recommended otherwise per primary
-WBAT to RLE
-Continue with pain management as needed
-PT/OT/DC planning
-Maintain Aquacel dressing for 7-10 days
-outpatient f/u 2 weeks for wound check/suture/staple removal with orthopedics
Hx of early onset Alzheimer dementia
cw seroquel
monitor for any behavioral changes; or small animal caretaker will be staying with patient this hospitalization
Anemia likely acute blood loss from surgery
monitor; 9.2
Recent weight loss
- has very good appetite
-May need to assess with outpatient workup unclear what colonoscopy status and prior history is
History of nondisplaced nasal bone fracture
Moderate protein calorie malnutrition
DVTppx with full dose aspirin as per orthopedic
Full code
Discussed with and small animal caretaker at bedside again today. Discussed need for post hospital SNF care. awaiting SNF placement and auth
General: Appears Chronically Ill and Cachectic
HEENT: Normocephalic
Respiratory: No audible wheeze
Cardiac: Regular Rhythm
GI: Soft
Neuro: Awake; Negative Oriented
Anticipated Discharge: Today
Subjective/Interval History
-
Date of Service: March 28, 2024
denies pain
Objective Data
-
Labs:
Laboratory Results
03/28/24
06:02
Hgb 9.2 L
Hct 25.9 L
Vital Signs:
Vital Signs
Temp Pulse Resp BP Pulse Ox
99.0 F 80 18 111/60 98
03/27/24 23:00 03/28/24 07:25 03/28/24 07:25 03/28/24 07:25 03/28/24 08:00
I&O
03/27/24 03/28/24 03/29/24
06:59 06:59 06:59
Intake Total 120 / 120 1080 / 1080
Balance 120 / 120 1080 / 1080
[2024-03-28 11:54] VITALS: BP 126/76; PULSE 98
[2024-03-28 12:03] VITALS: BP 126/76; PULSE 98
[2024-03-28 14:46] VITALS: BP 139/85
--- NOTE | 2024-03-28 16:28 | CM ---
CM reviewed pt with Dr Meredith- remains medically ready for dc
Multiple outreach to [employer]- SNF auth remains pending
Case forwarded to [employer] escalation team by CM Director
Pt was previously scheduled for BLS transport to [facility] in anticipation of auth approval
Call to Acute and BLS cancelled by CM
Medical necessity and transport remain on chart
Updates to Dr Meredith, nursing, spouse and SNF admissions/[place] [phone]
Discharge Disposition- [facility] pending [employer] auth via BLS
[2024-03-28 19:28] VITALS: BP 109/85
[2024-03-28] MEDS: COLACE 100 MG PO (20:14)
[2024-03-28] MEDS: ROXICODONE 5 MG PO (20:14)
[2024-03-28 23:02] VITALS: BP 96/58
[2024-03-29 03:22] VITALS: BP 103/55
[2024-03-29 05:43] LABS: Hematocrit 26.9 % (37.0-47.0); Hemoglobin 9.2 g/dL (12.0-16.0)
[2024-03-29 07:30] VITALS: BP 95/58
[2024-03-29] MEDS: SENOKOT 17.1999999999999993 MG PO (08:03)
[2024-03-29] MEDS: ROXICODONE 5 MG PO (08:04)
[2024-03-29] MEDS: ASPIRIN 325 MG PO (08:04)
[2024-03-29] MEDS: COLACE 100 MG PO (08:04)
[2024-03-29] MEDS: SEROQUEL 25 MG PO (08:05)
--- NOTE | 2024-03-29 10:32 | CM ---
Addendum entered by Alicia Rodriguez 03/29/24 10:58:
12 pm picker / packer time.
Private caregiver Dana updated, [place] from [facility] updated.
Original Note:
Patient seen bedside with caregiver Dana.
patient for transfer to [facility] today.
Insurance authorization [id number] received.
[employer] insurance authorization
Approved skilled level of care
Reference # [id number]
Approved 03/29/24 start date with D 04/10/24
Updates to Trish Pina at P# [phone],
MD updated
Spouse updated
[place] from [facility] updated.
Updates sent via [employer].
[facility]
Report# [phone]

Ambulance transport being scheduled.
--- NOTE | 2024-03-29 10:54 | W.PN.HOSP.TC ---
Today's Communication/Plan
-
Monitor vital signs and see plan
Auth Obtained
Discharge today
Time of discharge 37 minutes
Assessment / Plan
Assessment / Plan
58-year-old female with history of early onset Alzheimer disease came to the hospital after a fall with right hip fracture. Patient is poor historian and history was taken from at bedside. Patient had a ground-level fall in the shower
and twisted her right hip. Currently denies any pain. Seen by orthopedics and underwent rt hip hemiarthroplasty on 03/22
Acute right hip fracture secondary to trauma
X-ray noted
CT scan: There is a subcapital fracture of the neck of the proximal right femur, minimally rotated and possibly impacted. There is no accompanying dislocation identified. No additional recent cortical fracture is seen.
diet resumed
ASA for DVT ppx
pain control
EKG reviewed no acute ischemic or injury changes and stable sinus rhythm/ no hx of other cardiac problems per family
-anterior hip precautions 6 weeks as best applicable
-DVT ppx of ASA 325mg daily for 4 weeks unless recommended otherwise per primary
-WBAT to RLE
-Continue with pain management as needed
-PT/OT/DC planning
-Maintain Aquacel dressing for 7-10 days
-outpatient f/u 2 weeks for wound check/suture/staple removal with orthopedics
Hx of early onset Alzheimer dementia
cw seroquel
monitor for any behavioral changes; or climate change analyst will be staying with patient this hospitalization
Anemia likely acute blood loss from surgery
monitor; 9.2
Recent weight loss
- has very good appetite
-May need to assess with outpatient workup unclear what colonoscopy status and prior history is
History of nondisplaced nasal bone fracture
Moderate protein calorie malnutrition
DVTppx with full dose aspirin as per orthopedic
Full code
Discussed with and climate change analyst at bedside again today. Discussed need for post hospital SNF care. auth received. dc today
General: Appears Chronically Ill and Cachectic
HEENT: Normocephalic
Respiratory: No audible wheeze
Cardiac: Regular Rhythm
GI: Soft
Neuro: Awake; Negative Oriented
Anticipated Discharge: Today
Subjective/Interval History
-
Date of Service: March 29, 2024
no pain
Objective Data
-
Labs:
Laboratory Results
03/29/24
05:07
Hgb 9.2 L
Hct 26.9 L
Vital Signs:
Vital Signs
Temp Pulse Resp BP Pulse Ox
98.4 F 90 18 95/58 96
03/29/24 03:22 03/29/24 07:30 03/29/24 07:30 03/29/24 07:30 03/29/24 07:30
I&O
03/28/24 03/29/24 03/30/24
06:59 06:59 06:59
Intake Total 1080 / 1080 1080 / 1080
Balance 1080 / 1080 1080 / 1080
--- NOTE | 2024-03-29 11:01 | W.DCSUMMARY ---
Discharge Summary
Discharge Data
Date of Admission: 03/21/24
Date of Discharge: 03/29/24
-
Pending Results: No
Hospital Course
58-year-old female with past medical history of early onset Alzheimer disease came to the hospital after a fall with acute right hip fracture secondary to trauma. Patient was seen by orthopedics and was taken to the OR for right hemiarthroplasty.
Post OP patient was monitored in the hospital. Patient was also evaluated by physical therapy who recommended SNF. Once patient symptoms were improving and she had SNF placement, she was then discharged with instructions to follow-up with all her
physicians outpatient.
Discharge Plan
-
Patient Disposition: Longterm/SNF
Discharge Diagnosis/Procedures: Acute right hip fracture secondary to trauma status post right hemiarthroplasty
History of dementia
Diet: As tolerated
Activity: As tolerated
Driving Restrictions: Not until seen by your Dr
Activity Restrictions/Additional Instructions:
-anterior hip precautions 6 weeks as best applicable
-DVT ppx of ASA 325mg daily for 4 weeks
-WBAT to RLE, dressing to be removed on/around post op day 7-10. Valeria to be removed at SNF around 14 days post op or in Surgeon's office.
Referrals:
Tio Clements MD [Active] - in two to four weeks (ORthopedic surgeon)
Jason Mccullough MD [Family Provider] - in less than 1 week
Prescriptions:
New
aspirin 325 mg Tablet
325 mg PO DAILY Qty: 0 0RF
docusate sodium 100 mg Capsule
100 mg PO BID Qty: 0 0RF
polyethylene glycol 3350 [HealthyLax] 17 gram Powder In Packet
17 g PO DAILYPRN PRN (Reason: constipation) Qty: 0 0RF
oxycodone 5 mg Tablet
5 mg PO Q4HPRN PRN (Reason: Mild to moderate pain) Qty: 12 0RF
sennosides [Senna Laxative] 8.6 mg Tablet
17.2 mg PO BID Qty: 0 0RF
oxycodone 10 mg Tablet
10 mg PO Q4HPRN PRN (Reason: severe pain) Qty: 12 0RF
acetaminophen 325 mg Tablet
650 mg PO Q4HPRN PRN (Reason: mild pain/URENA/temp> 100.4F) Qty: 0 0RF
Continued
quetiapine 25 mg tablet
25 mg PO DAILY
Discharge Orders:
Discharge Patient (As Directed); Ordered 03/29/24
Ordered By: Oswaldo Meredith
Discharge Date and Time
Discharge Date/Time: 03/29/24 12:04
Print Language: VENEZUELAN
[2024-03-29 11:54] VITALS: BP 137/91
== END 2024-03-29 12:04 | DRG 522 ==
LOC: 2 SOUTH 16:37
PROVIDERS: Internal Medicine; Orthopaedic Surgery; Physician Assistant; ADMITTING PHYSICIAN Internal Medicine; CONSULT PHYSICIAN Specialist; EMERGENCY PHYSICIAN Emergency Medicine; FAMILY PHYSICIAN Family Medicine
PROC: 0SRR0J9 Replacement of Right Hip Joint, Femoral Surface with Synthetic Substitute, Cemented, Open Approach (ICD-10-PCS; 2024-03-22)
DX: S72.001A Fracture of unspecified part of neck of right femur, initial encounter for closed fracture (principal); R64 Cachexia; Z68.1 Body mass index [BMI] 19.9 or less, adult; D62 Acute posthemorrhagic anemia; E44.0 Moderate protein-calorie malnutrition; F02.C0 Dementia in other diseases classified elsewhere, severe, without behavioral disturbance, psychotic disturbance, mood disturbance, and anxiety; G30.0 Alzheimer's disease with early onset; W18.2XXA Fall in (into) shower or empty bathtub, initial encounter; Y93.E1 Activity, personal bathing and showering; Y92.002 Bathroom of unspecified non-institutional (private) residence as the place of occurrence of the external cause; Z87.81 Personal history of (healed) traumatic fracture
CPT/HCPCS: 73502; 73522; 73564; 73700; 80048; 80053; 85014; 85018; 85025; 85027; 85610; 85730; 86850; 86900; 86901; 93005; 97116; 97163; 97167; 97530; 97535; 99285; C1713; C1776

== ENCOUNTER 2024-07-07 11:20 | Emergency (ER) | payer OTHER, SELFPAY ==
[2024-07-07 11:25] VITALS: BP 104/51
--- NOTE | 2024-07-07 12:25 | ED.GENMED ---
History of Present Illness
General
Chief Complaint: Head Injury
Source: patient
Exam Limitations: none
Time Seen by Provider: 07/07/24 11:39
Nursing documentation reviewed up to this point in time: agreed with
History of Present Illness
History of Present Illness:
The patient is a 59-year-old female the past medical history of dementia who arrives from memory care unit after an unwitnessed fall that occurred yesterday at around 11 AM according to her . Her reports that he is upset because when
he visited her today, he noticed a laceration above her right eyebrow that was still bleeding. He reports that the memory care unit never called him, even though they said they did. He expresses that they did not leave a message hide. He reports
that they closed the laceration with Steri-Strips but he was concerned that the wound may be deeper than they realized. Her reports that he does not want any testing done, as she has a history of severe dementia and this would be
unnecessary. He reports that the patient is acting like her normal self. He suspects that she fell because she tends to sit and bend forward while she sits. The patient does not offer any history. She is slightly agitated. She has a laceration
above her right eyebrow with dried blood in her eyebrow.
Past History
Past History
ED Past Medical History: Other (Early onset Alzheimer's)
ED Past Surgical History: None
Social History
Tobacco: Non-smoker
Alcohol: None
Drug: None
Personal:
Living: [facility]
Employment: Other
Family History
Family History: Negative Diabetes, Hypertension, Early CAD, Asthma or Cancer
Review of Systems
Review of Systems
Allergies reviewed?: Yes
Other source history: family (, son who are at the bedside)
All Other Systems: Not applicable
Phy Exam
Physical Exam
Physical Exam:
Physical Exam
General: Somewhat cachectic, poor eye contact, slightly agitated
Neck: supple.
Heart: s1/s2 regular rate and rhythm,
Lungs: no acute respiratory distress.
Abdomen: Soft
Neuro: Alert, nonfocal
Skin: 1.5 cm horizontally aligned laceration above right eyebrow area. Appears superficial.
Psychiatric: Agitated, noninteractive
Extremities: No bony tenderness.
Course
Vital Signs
Initial and Last Documented VS:
Initial Vital Signs
Pulse Resp BP Pulse Ox
91 16 104/51 98
07/07/24 11:25 07/07/24 11:25 07/07/24 11:25 07/07/24 11:25
Last Documented Vital Signs
Pulse Resp BP Pulse Ox
91 16 104/51 98
07/07/24 11:25 07/07/24 11:25 07/07/24 11:25 07/07/24 11:25
Procedures
Laceration Closure
Right Forehead:
Status of Wound: clean
Size of Wound in cm: 1.5
Preparation: cleaned with saline
Type of Closure: Dermabond-skin glue
Additional information:
Steri-Strips applied overlying glued wound
MDM/Problems Addressed
Differential Diagnosis Includes:
Intracranial hematoma, intracranial hemorrhage, scalp laceration
MDM/Problems Addressed:
Patient presents after having an unwitnessed fall with an obvious acute closed head injury and laceration of her right scalp area
Chronic conditions affecting care:
Dementia
*Radiology
Radiology exam reviewed: other
*Pulse Oximetry
Patient hypoxic: no
*EKG
Interpreted by ED Provider?: NA
*Development Coach Interpretation
Rate: Development Coach- N/A
*Critical Care Note
Total Time (30-74mins, 75-104mins- exclusive of procedures): Not Applicable
Data Reviewed
Source: family
Patient Management
Social determinants of health affecting care: Living situation and Strong social support
Escalation/DeEscalation of care consider admission/obs:
Decision made to not give a tetanus shot or do a CAT scan of patient's head due to 's request. He expresses that the patient has severe dementia and he does not want to put her through anything else other than repairing the laceration.
ED Attending Note
-
Portions of this chart may have been created with voice recognition software.� Occasional wrong word or��sound alike� substitutions may have occurred due to the inherent limitations of voice recognition software.
Discharge Plan
Departure
Patient Disposition: Home (Routine Discharge)
Date of Disposition: 07/07/24
Time of Disposition: 12:21
Patient with high blood pressure during this ER visit?: No
Condition: Good
Covid-19: Not Applicable
Discharge Problem:
Forehead laceration, Head injury, acute
Instructions: Head injury in adults, Laceration Repair With Glue ED
Prescriptions:
No Action
quetiapine 25 mg tablet
25 mg PO DAILY
aspirin 325 mg Tablet
325 mg PO DAILY Qty: 0 0RF
docusate sodium 100 mg Capsule
100 mg PO BID Qty: 0 0RF
polyethylene glycol 3350 [HealthyLax] 17 gram Powder In Packet
17 g PO DAILYPRN PRN (Reason: constipation) Qty: 0 0RF
oxycodone 5 mg Tablet
5 mg PO Q4HPRN PRN (Reason: Mild to moderate pain) Qty: 12 0RF
sennosides [Senna Laxative] 8.6 mg Tablet
17.2 mg PO BID Qty: 0 0RF
oxycodone 10 mg Tablet
10 mg PO Q4HPRN PRN (Reason: severe pain) Qty: 12 0RF
acetaminophen 325 mg Tablet
650 mg PO Q4HPRN PRN (Reason: mild pain/URENA/temp> 100.4F) Qty: 0 0RF
Referrals:
Jason Mccullough MD [Family Provider] -
Activity Restrictions/Additional Instructions:
Allow the Steri-Strips to curl and fall off on their own. Please try to keep the wound dry for about 48 hours. After that, it can get wet.
Interventions
Interventions:
*Risk Screen - Suicide Last Done: 07/07/24 11:44
*General Assessment Last Done: 07/07/24 11:44
*Neglect/Abuse Screening Last Done: 07/07/24 11:44
ED- Fall Risk Assessment Last Done: 07/07/24 12:27
*ED COVID-19 Vaccine History Last Done: 07/07/24 11:44
*Nursing Disposition Last Done: 07/07/24 12:27
ED-Skin Assessment Last Done: 07/07/24 11:49
ED- Neurological Assessment Last Done: 07/07/24 11:44
Discharge Date and Time
Discharge Date/Time: 07/07/24 12:29
Print Language: ESTONIAN
== END 2024-07-07 12:29 | disposition home or self-care (01) ==
LOC: EMR 11:20
PROVIDERS: EMERGENCY PHYSICIAN Emergency Medicine; FAMILY PHYSICIAN Family Medicine
DX: S01.81XA Laceration without foreign body of other part of head, initial encounter (principal); S09.90XA Unspecified injury of head, initial encounter; W19.XXXA Unspecified fall, initial encounter; F02.C0 Dementia in other diseases classified elsewhere, severe, without behavioral disturbance, psychotic disturbance, mood disturbance, and anxiety; G30.0 Alzheimer's disease with early onset
CPT/HCPCS: 99283; 12011

== ENCOUNTER → 2024-09-17 15:23 | Outpatient (REF) | payer OTHER, SELFPAY | LOC: HWRAD 15:23 | PROVIDERS: ATTENDING PHYSICIAN Physician Assistant Surgical; FAMILY PHYSICIAN Family Medicine | DX: Z96.641 Presence of right artificial hip joint (principal); M25.551 Pain in right hip; S80.11XA Contusion of right lower leg, initial encounter | CPT/HCPCS: 72192 ==

== ENCOUNTER 2024-12-14 07:52 | Emergency (ER) | payer OTHER, SELFPAY ==
[2024-12-14 07:57] VITALS: BP 100/66
[2024-12-14] MEDS: XANAX 0.25 MG PO (08:25)
[2024-12-14] MEDS: SEROQUEL 25 MG PO (08:25)
--- NOTE | 2024-12-14 08:30 | ED.GENMED ---
History of Present Illness
General
Chief Complaint: Fall
Source: patient, spouse and medical care evaluation specialist
Exam Limitations: dementia
Time Seen by Provider: 12/14/24 08:00
Nursing documentation reviewed up to this point in time: agreed with
History of Present Illness
History of Present Illness:
59-year-old female presenting to the emergency department today with concerns of a mechanical fall this morning when she lost her footing and fell. This was on camera. She hit her forehead denies any additional discomfort. Did not seem to lose
consciousness. She does have a history of late stage dementia most of history is coming from the .
Past History
Past History
ED Past Medical History: Other (Early onset Alzheimer's)
ED Past Surgical History: None
Social History
Tobacco: Non-smoker
Alcohol: None
Drug: None
Personal:
Living: senior care
Employment: Other
Family History
Family History: Negative Diabetes, Hypertension, Early CAD, Asthma or Cancer
Review of Systems
Review of Systems
Allergies reviewed?: Yes
All Other Systems: ROS reviewed and negative except as documented in HPI and ROS
Phy Exam
Physical Exam
Physical Exam:
GENERAL: Alert , in no apparent distress
EYE: pupils equal and reactive
NECK: Supple, no significant adenopathy.
ENT: Laceration to the left frontal forehead 5 cm in length subcutaneous in depth o/p clr, mmm.
CARDIAC: Regular rate and rhythm .
LUNGS: Clear breath sounds bilaterally, no acute respiratory distress, no wheezes/rales/rhonchi
ABDOMEN: Soft, without focal tenderness, no r/g, no cvat
NEUROLOGICAL: Alert not oriented to person place or time no focal neuro deficits moving all extremities
SKIN: Warm and dry, skin intact.
MUSCULOSKELETAL: No edema, well perfused.
PSYCH: Following basic commands
Course
Orders/Labs/Results
Orders:
Orders
12/14/24 08:10
CT Cervical Spine W/o Iv Contr Urgent
Comment:
Reason For Exam: fall hit head/neck
CT Head W/o Iv Contrast Urgent
Comment:
Reason For Exam: fall hit head
Alprazolam [Xanax] 0.25 mg PO NOW STA
Quetiapine Fumarate [Seroquel] 25 mg PO NOW STA
12/14/24 09:47
Lidocaine/Epinephrine/Tetracai [Let Topical Anesthetic Gel] 3 ml .ROUTE .STK-MED ONE
Lidocaine/Epinephrine/Tetracai [Let Topical Anesthetic Gel] 3 ml TOPICAL NOW STA
Vital Signs
Initial and Last Documented VS:
Initial Vital Signs
Pulse Resp BP Pulse Ox
86 16 100/66 95
12/14/24 07:57 12/14/24 07:57 12/14/24 07:57 12/14/24 07:57
Last Documented Vital Signs
Pulse Resp BP Pulse Ox
86 16 100/66 95
12/14/24 07:57 12/14/24 07:57 12/14/24 07:57 12/14/24 07:57
Procedures
Laceration Closure
Anterior Medial Scalp:
Status of Wound: clean
Size of Wound in cm: 4
Description of Wound Edges: sharp and surrounded by abrasion
Preparation: cleaned with saline
Anesthesia: 1% Lidocaine with epi and Topical-LET
Revision/Debridement: routine- no revision
Wound exploration: explored to base- no FB
Type of Closure: single layer closure
Skin Closure Material: skin curtis
Number of sutures: 4
MDM/Problems Addressed
MDM/Problems Addressed:
59-year-old female presenting after what appeared to be a mechanical fall just prior to arrival hitting her forehead. Did not lose, this does have a laceration to the left frontal forehead. Not on blood thinners. Moving extremities well. No
signs of injury to the extremities chest abdomen or back. Patient does have dementia unable to give significant history. Plan for CT scan of the head and neck. CT without emergent findings. Patient in no distress here. 4 curtis placed
otherwise will follow-up closely as an outpatient for removal. Return precautions given.
*Critical Care Note
Total Time (30-74mins, 75-104mins- exclusive of procedures): Not Applicable
ED Attending Note
-
Portions of this chart may have been created with voice recognition software.� Occasional wrong word or��sound alike� substitutions may have occurred due to the inherent limitations of voice recognition software.
Discharge Plan
Departure
Patient Disposition: Home (Routine Discharge)
Date of Disposition: 12/14/24
Time of Disposition: 11:00
Patient with high blood pressure during this ER visit?: No
Condition: Good
Covid-19: Not Applicable
Discharge Problem:
Fall, Laceration of scalp
Instructions: Laceration Repair With [place] (DC)
Prescriptions:
No Action
quetiapine 25 mg tablet
25 mg PO DAILY
aspirin 325 mg Tablet
325 mg PO DAILY Qty: 0 0RF
docusate sodium 100 mg Capsule
100 mg PO BID Qty: 0 0RF
polyethylene glycol 3350 [HealthyLax] 17 gram Powder In Packet
17 g PO DAILYPRN PRN (Reason: constipation) Qty: 0 0RF
oxycodone 5 mg Tablet
5 mg PO Q4HPRN PRN (Reason: Mild to moderate pain) Qty: 12 0RF
sennosides [Senna Laxative] 8.6 mg Tablet
17.2 mg PO BID Qty: 0 0RF
oxycodone 10 mg Tablet
10 mg PO Q4HPRN PRN (Reason: severe pain) Qty: 12 0RF
acetaminophen 325 mg Tablet
650 mg PO Q4HPRN PRN (Reason: mild pain/URENA/temp> 100.4F) Qty: 0 0RF
Referrals:
Juan Diego Caballero MD [Family Provider] -
Activity Restrictions/Additional Instructions:
Natalie came to the emergency department today after a fall. Head CT and neck CT without emergent findings. The laceration was closed with curtis, 4 in total
Interventions
Interventions:
*Risk Screen - Suicide Last Done: 12/14/24 07:57
*General Assessment Last Done: 12/14/24 08:47
*Neglect/Abuse Screening Last Done: 12/14/24 07:57
ED- Fall Risk Assessment Last Done: 12/14/24 08:47
*ED COVID-19 Vaccine History Last Done: 12/14/24 08:47
ED-Musculoskeletal Assessment Last Done: 12/14/24 08:47
ED- Neurological Assessment Last Done: 12/14/24 08:47
ED-Skin Assessment Last Done: 12/14/24 08:47
Discharge Date and Time
Print Language: ROMANSH
[2024-12-14] MEDS: LET TOPICAL ANESTHETIC GEL 3 ML TOPICAL (09:48)
== END 2024-12-14 12:12 | disposition home or self-care (01) ==
LOC: EMR 07:52
PROVIDERS: EMERGENCY PHYSICIAN Emergency Medicine; FAMILY PHYSICIAN Family Medicine
DX: S01.01XA Laceration without foreign body of scalp, initial encounter (principal); W19.XXXA Unspecified fall, initial encounter; F02.C0 Dementia in other diseases classified elsewhere, severe, without behavioral disturbance, psychotic disturbance, mood disturbance, and anxiety; G30.0 Alzheimer's disease with early onset; Z82.49 Family history of ischemic heart disease and other diseases of the circulatory system
CPT/HCPCS: 99284; 12002; 70450; 72125

== ENCOUNTER 2025-03-22 07:21 | Emergency (ER) | payer OTHER, SELFPAY ==
[2025-03-22 07:24] VITALS: BP 130/97
--- NOTE | 2025-03-22 07:30 | EDRN ---
Patient unable to complete Suicide screen due to end stage Alzheimer's.
[2025-03-22 08:00] VITALS: BMI 14.2
--- NOTE | 2025-03-22 08:24 | ED.GENMED ---
History of Present Illness
General
Chief Complaint: Head Injury
Source: patient and family
Exam Limitations: dementia
Time Seen by Provider: 03/22/25 08:06
History of Present Illness
History of Present Illness:
See MDM
Past History
Past History
ED Past Medical History: Other (Early onset Alzheimer's)
ED Past Surgical History: None
Social History
Tobacco: Non-smoker
Alcohol: None
Drug: None
Personal:
Living: shelter
Employment: Other
Family History
Family History: Negative Diabetes, Hypertension, Early CAD, Asthma or Cancer
Phy Exam
Physical Exam
Physical Exam:
See MDM
Course
Orders/Labs/Results
Orders:
Orders
03/22/25 08:23
Amoxicillin 875 mg/Clav 125 mg [Augmentin 875 mg/125 mg] 1 tablet PO NOW STA
Vital Signs
Initial and Last Documented VS:
Initial Vital Signs
Temp Pulse Resp BP Pulse Ox
98.5 F 68 16 130/97 98
03/22/25 07:24 03/22/25 07:24 03/22/25 07:24 03/22/25 07:24 03/22/25 07:24
Last Documented Vital Signs
Temp Pulse Resp BP Pulse Ox
98.5 F 68 16 130/97 98
03/22/25 07:24 03/22/25 07:24 03/22/25 07:24 03/22/25 07:24 03/22/25 07:24
Procedures
Laceration Closure
Upper Anterior Nose:
Status of Wound: clean
Size of Wound in cm: 0.5
Description of Wound Edges: sharp
Preparation: cleaned with soap & water
Revision/Debridement: routine- no revision
Type of Closure: Dermabond-skin glue
MDM/Problems Addressed
Differential Diagnosis Includes:
HPI and MDM Narrative:
59-year-old female presenting for an unwitnessed fall. Patient does have significant Alzheimer's and presents with family member. Family member was concerned that patient was bleeding from her nose. She is concerned about a possible fracture.
On exam, patient is a poor historian. She appears to be at her baseline mental status per family member. She has scabbing to the bridge of her nose and to her left nare. With the help of the family member, I was able to clean the nose. I noticed
a small cut over the bridge of the nose and a small cut by the left nasal septum. No septal hematoma noted. Dermabond was placed on the bridge of the nose.
I discussed the workup of CT head and CT maxillofacial. Family member acknowledges my concerns but declined any CT knowing that we are missing any potential fracture or bleed. We discussed outpatient follow-up with ENT but family member states
that they will likely not do that. Regardless, I gave the number for ENT. Will start Augmentin with concern for an open fracture.
Physical exam
General: Sitting in bed comfortably
HEENT: protecting airway. Small laceration to bridge of nose. Small abrasion to left nasal septum. No septal hematoma
Neck: supple
CV: No evidence of cyanosis
Resp: No accessory muscle use
Abd: Non-distended
Extremities: No deformities
Neuro: alert. Anxious and fearful
Psych: Flat affect
Skin: Intact
Problems Addressed including Acute and Chronic Conditions affecting care:
1. Nasal laceration
Acuity: acute
Prognosis: stable
Details: Dermabond placed
2. Likely nasal fracture
Acuity: acute
Prognosis: stable
Details: Discussed follow-up with ENT. Will start Augmentin given concern for open fracture
Differential Diagnosis (but not limited to): Intracranial hemorrhage, skull fracture, nasal fracture
Testing considered: CT head and maxillofacial
Drug therapy (if applicable): OTC meds, please see d/c instruction regarding Rx drugs
Amount and/or Complexity of Data Reviewed
Clinical info obtained from: Family member
External data reviewed: N/A
Labs I independently reviewed (but not limited to): N/A
Radiology: N/A
Pulse Ox: not hypoxic
EKG independently reviewed: N/A
[place] Agent: N/A
Critical Care: N/A
Risk of Complication:
Social Determinants of health: Good social support
Discussed with other providers: N/A
Escalation of Care includes Admit/Obs: After being observed in the Emergency Department, pt stable for discharge.
Occasional wrong word or 'sound a like' substitutions may have occurred due to the inherent limitations of voice recognition software. Read the chart carefully and recognize, using context, where substitutions have occurred.
*Critical Care Note
Total Time (30-74mins, 75-104mins- exclusive of procedures): Not Applicable
ED Attending Note
-
Portions of this chart may have been created with voice recognition software.� Occasional wrong word or��sound alike� substitutions may have occurred due to the inherent limitations of voice recognition software.
Discharge Plan
Departure
Patient Disposition: Home (Routine Discharge)
Date of Disposition: 03/22/25
Time of Disposition: 08:24
Patient with high blood pressure during this ER visit?: No
Discharge Problem:
Facial laceration, Broken nose
Instructions: Laceration Repair With Glue (DC)
Prescriptions:
New
amoxicillin-pot clavulanate 875-125 mg tablet
1 tab PO BID Qty: 14 0RF
No Action
quetiapine 25 mg tablet
25 mg PO DAILY
aspirin 325 mg Tablet
325 mg PO DAILY Qty: 0 0RF
docusate sodium 100 mg Capsule
100 mg PO BID Qty: 0 0RF
polyethylene glycol 3350 [HealthyLax] 17 gram Powder In Packet
17 g PO DAILYPRN PRN (Reason: constipation) Qty: 0 0RF
oxycodone 5 mg Tablet
5 mg PO Q4HPRN PRN (Reason: Mild to moderate pain) Qty: 12 0RF
sennosides [Senna Laxative] 8.6 mg Tablet
17.2 mg PO BID Qty: 0 0RF
oxycodone 10 mg Tablet
10 mg PO Q4HPRN PRN (Reason: severe pain) Qty: 12 0RF
acetaminophen 325 mg Tablet
650 mg PO Q4HPRN PRN (Reason: mild pain/URENA/temp> 100.4F) Qty: 0 0RF
Referrals:
Thomas Mcdonnell MD [Active, Otology]
Juan Diego Caballero MD [Family Provider, Family Practice]
Activity Restrictions/Additional Instructions:
Your wound was fixed with derma-augustin. This is a special glue that holds a wound closed similar to stitches. This type of wound closure will eventually fall off by itself and does not need to be removed. You may wash the area very gently, but do not
scrub or pick at the glue. Watch for signs of infection: fever over 100.5', increasing pain, red streaks around wound, swelling, drainage of pus, or bad smell. If any of these happen, return to ED promptly.
Natalie was started on antibiotics with the concern for a cut over a fracture. This is referred to as an open fracture. Please take the antibiotics as prescribed to ensure that bacteria does not get to the broken bone.
I know we discussed that you will likely not follow-up with ENT. However, if you change your mind, please call for follow-up evaluation to reassess the questionable broken nose once swelling has improved.
Interventions
Interventions:
*Risk Screen - Suicide Last Done: 03/22/25 07:24
*General Assessment Last Done: 03/22/25 08:00
*Neglect/Abuse Screening Last Done: 03/22/25 08:00
*ED- Fall Risk Assessment Last Done: 03/22/25 08:00
*ED COVID-19 Vaccine History Last Done: 03/22/25 07:24
ED- Neurological Assessment Last Done: 03/22/25 08:00
ED-Skin Assessment Last Done: 03/22/25 08:00
Discharge Date and Time
Print Language: AUSTRALIAN
[2025-03-22] MEDS: AUGMENTIN 875 MG/125 MG 1 TABLET PO (08:37)
== END 2025-03-22 08:44 | disposition home or self-care (01) ==
LOC: EMR 07:21
PROVIDERS: EMERGENCY PHYSICIAN Student in an Organized Health Care Education/Training Program; FAMILY PHYSICIAN Family Medicine
DX: S01.21XA Laceration without foreign body of nose, initial encounter (principal); S02.2XXA Fracture of nasal bones, initial encounter for closed fracture; X58.XXXA Exposure to other specified factors, initial encounter; F02.80 Dementia in other diseases classified elsewhere, unspecified severity, without behavioral disturbance, psychotic disturbance, mood disturbance, and anxiety; G30.0 Alzheimer's disease with early onset
CPT/HCPCS: 99283; 12011

== ENCOUNTER 2025-08-16 08:00 | Emergency (ER) | payer OTHER, SELFPAY ==
[2025-08-16 08:04] VITALS: BP 113/73
--- NOTE | 2025-08-16 08:38 | ED.GENMED ---
History of Present Illness
General
Chief Complaint: Fall
Time Seen by Provider: 08/16/25 08:21
Nursing documentation reviewed up to this point in time: agreed with
History of Present Illness
History of Present Illness:
60-year-old female brought to the ER by family for evaluation of laceration to her scalp after an unwitnessed fall. Patient has dementia and falls frequently. She is unable to provide any relevant history. Family of her present bedside reports
that she frequently has spasms in the morning that cause her abrupt movements which can trigger falls. She is acting at her baseline mentation. He reports that she has been eating and drinking as per her usual. She is exhibiting her normal
behaviors. She is not on any blood thinners. They have no specific concerns other than the laceration on the back of her head.
Past History
Past History
ED Past Medical History: Other (Early onset Alzheimer's)
ED Past Surgical History: None
Social History
Tobacco: Non-smoker
Alcohol: None
Drug: None
Personal:
Living: long-term
Employment: Other
Family History
Family History: Negative Diabetes, Hypertension, Early CAD, Asthma or Cancer
Review of Systems
Review of Systems
Allergies reviewed?: Yes
Phy Exam
Physical Exam
Physical Exam:
Patient is awake, alert, appears in no acute distress, head 1.5 cm laceration present behind left ear in the hairline with bleeding controlled with pressure, no foreign body seen, no deeper structure injury noted, tympanic membranes normal bilateral
without hemotympanum, PERRL, EOMI mucous membranes moist, conjunctiva pink, heart regular rate and rhythm without murmurs or ectopy, lungs are clear to auscultation without wheezes rales or rhonchi, no JVD, abdomen is soft and nontender on
palpation, extremities without edema, GCS is 14 due to confusion, moving all extremities with equal strength, patient does have multiple superficial abrasions/contusions noted on her extremities and 1 on the bridge of her nose of varying ages
Course
Vital Signs
Initial and Last Documented VS:
Initial Vital Signs
Pulse Resp BP Pulse Ox
71 16 113/73 96
08/16/25 08:04 08/16/25 08:04 08/16/25 08:04 08/16/25 08:04
Last Documented Vital Signs
Pulse Resp BP Pulse Ox
71 16 113/73 96
08/16/25 08:04 08/16/25 08:04 08/16/25 08:04 08/16/25 08:40
Procedures
Laceration Closure
L scalp:
Status of Wound: clean
Size of Wound in cm: 1.5
Description of Wound Edges: sharp
Preparation: cleaned with saline
Anesthesia: 1% Lidocaine (2ml)
Wound exploration: explored to base- no FB
Type of Closure: single layer closure
Skin Closure Material: skin curtis
Number of sutures: 3
MDM/Problems Addressed
Differential Diagnosis Includes:
Differential diagnosis to consider but not limited to intracranial hemorrhage, skull fracture, occult cervical spine injury, progression of dementia, occult infection along with other etiologies
Chronic conditions affecting care:
Dementia, movement disorder NOS
*Pulse Oximetry
SaO2: 96
Oxygen Mode of Delivery: Room air
Patient hypoxic: no
*Critical Care Note
Total Time (30-74mins, 75-104mins- exclusive of procedures): Not Applicable
Data Reviewed
Review of Other/Old Records Reveals: Records (I reviewed ER visit note from Dr. Aguila from March 2025-patient had been seen after a unwitnessed fall with a nasal laceration. Family had opted for conservative management with wound repair only at
this visit)
Update Note
Update Note:
I reviewed patient's long-term paperwork including her medication list and her advanced directive-she is DNR. I discussed with family member present at bedside possible evaluation in the emergency department. He is declining radiologic imaging
at the current time with expressed understanding of no limitations of not obtaining any further workup. He feels comfortable with plan for laceration repair only. He assisted during procedure. Patient tolerated staple placement well, bleeding
controlled after curtis placed. Patient discharged back to her long-term care facility in the care of her family member. They had no questions prior to leaving department.
ED Attending Note
-
Portions of this chart may have been created with voice recognition software.� Occasional wrong word or��sound alike� substitutions may have occurred due to the inherent limitations of voice recognition software.
Discharge Plan
Departure
Patient Disposition: Home (Routine Discharge)
Date of Disposition: 08/16/25
Time of Disposition: 08:37
Patient with high blood pressure during this ER visit?: No
Discharge Problem:
Laceration of scalp, Fall, Head injury
Instructions: Head injury in adults, [place] - ED (DC), Laceration
Prescriptions:
No Action
quetiapine 25 mg tablet
25 mg PO DAILY
aspirin 325 mg Tablet
325 mg PO DAILY Qty: 0 0RF
docusate sodium 100 mg Capsule
100 mg PO BID Qty: 0 0RF
polyethylene glycol 3350 [HealthyLax] 17 gram Powder In Packet
17 g PO DAILYPRN PRN (Reason: constipation) Qty: 0 0RF
oxycodone 5 mg Tablet
5 mg PO Q4HPRN PRN (Reason: Mild to moderate pain) Qty: 12 0RF
sennosides [Senna Laxative] 8.6 mg Tablet
17.2 mg PO BID Qty: 0 0RF
oxycodone 10 mg Tablet
10 mg PO Q4HPRN PRN (Reason: severe pain) Qty: 12 0RF
acetaminophen 325 mg Tablet
650 mg PO Q4HPRN PRN (Reason: mild pain/URENA/temp> 100.4F) Qty: 0 0RF
amoxicillin-pot clavulanate 875-125 mg tablet
1 tab PO BID Qty: 14 0RF
Activity Restrictions/Additional Instructions:
Keep area of injury clean and dry for the next 24 hours. After this time you may gently wash with soap and water daily. Please have curtis removed in 10 to 14 days. Return to the ER for any concerns
Interventions
Interventions:
*Risk Screen - Suicide Last Done: 08/16/25 08:04
*Neglect/Abuse Screening Last Done: 08/16/25 08:04
*ED COVID-19 Vaccine History Last Done: 08/16/25 08:59
*ED Influenza Vaccine History Last Done: 08/16/25 08:59
ED-Musculoskeletal Assessment Last Done: 08/16/25 08:59
ED- Neurological Assessment Last Done: 08/16/25 08:59
ED-Skin Assessment Last Done: 08/16/25 08:59
Discharge Date and Time
Print Language: AZERI
== END 2025-08-16 08:40 | disposition home or self-care (01) ==
LOC: EMR 08:00
PROVIDERS: EMERGENCY PHYSICIAN Emergency Medicine; FAMILY PHYSICIAN Family Medicine
DX: S01.01XA Laceration without foreign body of scalp, initial encounter (principal); W19.XXXA Unspecified fall, initial encounter; F02.80 Dementia in other diseases classified elsewhere, unspecified severity, without behavioral disturbance, psychotic disturbance, mood disturbance, and anxiety; G30.0 Alzheimer's disease with early onset; R29.6 Repeated falls; Z82.49 Family history of ischemic heart disease and other diseases of the circulatory system
CPT/HCPCS: 99282; 12001